=== PATIENT | female | born 1970 | race Caucasian/White ===

== ENCOUNTER 2018-12-17 00:23 | Emergency (ER) | payer BC, OTHER ==
[2018-12-17 01:08] VITALS: BP 163/93
--- NOTE | 2018-12-17 01:09 | EDM.PDOC ---
ED HPI GENERAL MEDICAL PROBLEM - General Chief Complaint: Abdominal Pain Stated Complaint: HORRIBLE SIDE PAIN [id number] Time Seen by Provider: 12/17/18 01:09 Source of Information: Reports: Patient, Family, RN, RN Notes Reviewed History Limitations: Reports: No Limitations - History of Present Illness INITIAL COMMENTS - FREE TEXT/NARRATIVE: Pt to ER with c/o RUQ pain that wraps around into the back. Admits to chills, nausea. Denies vomiting, fever, diarrhea. She states she last ate at 1800, a cheeseburger. She states the pain started about 2100 with a sharp, stabbing pain. She denies any urinary symptoms. She states she has known stones in the gallbladder. Rates pain 8-05/19. Onset: Today, Sudden Duration: Constant, Getting Worse Location: Reports: Abdomen, Back Quality: Reports: Sharp, Stabbing Severity: Severe - Related Data Allergies Allergy/AdvReac Type Severity Reaction Status Date / Time Penicillins Allergy Hives Verified 09/05/17 17:23 Home Meds: Home Meds Famotidine [Pepcid] 20 mg PO DAILY PRN 09/12/16 [History] Ibuprofen [Motrin Ib] 200 mg PO Q6HR PRN 09/12/16 [History] Past Medical History HEENT History: Reports: None Cardiovascular History: Reports: Other (See Below) Other Cardiovascular History: Hypertriglyceridemia Respiratory History: Reports: None Gastrointestinal History: Reports: GERD Genitourinary History: Reports: None Musculoskeletal History: Reports: Arthritis Neurological History: Reports: Migraines Psychiatric History: Reports: Depression Endocrine/Metabolic History: Reports: Obesity/BMI 30+, Other (See Below) Other Endocrine/Metabolic History: Hyperglycemia Hematologic History: Reports: None Immunologic History: Reports: None Oncologic (Cancer) History: Reports: None Dermatologic History: Reports: None - Infectious Disease History Infectious Disease History: Reports: Chicken Pox - Past Surgical History Female Surgical History: Reports: Breast Biopsy, Breast Reduction Musculoskeletal Surgical History: Reports: Other (See Below) Social & Family History - Family History Cardiac: Reports: CAD Respiratory: Reports: Asthma GI: Reports: GERD Neurological: Reports: Migraines Endocrine/Metabolic: Reports: Diabetes, Type I Oncologic: Reports: Breast, Skin, Other (See Below) Other Oncologic Family History: stomach cancer in brother - Caffeine Use Caffeine Use: Reports: Soda ED ROS GENERAL - Review of Systems Review Of Systems: ROS reveals no pertinent complaints other than HPI. ED EXAM, GI/ABD - Physical Exam Exam: See Below Exam Limited By: No Limitations General Appearance: Alert, WD/WN, Moderate Distress Eyes: Bilateral: Normal Appearance, EOMI Ears: Normal External Exam, Hearing Grossly Normal Nose: Normal Inspection Throat/Mouth: Normal Inspection, Normal Voice, No Airway Compromise Head: Atraumatic, Normocephalic Neck: Normal Inspection, Supple, Non-Tender, Full Range of Motion Respiratory/Chest: No Respiratory Distress, Lungs Clear, Normal Breath Sounds, No Accessory Muscle Use, Chest Non-Tender Cardiovascular: Normal Peripheral Pulses, Regular Rate, Rhythm, No Edema, No Gallop, No JVD, No Murmur, No Rub GI/Abdominal Exam: Normal Bowel Sounds, Soft, No Organomegaly, No Distention, Tender (RUQ) (Female) Exam: Deferred Rectal (Female) Exam: Deferred Back Exam: Normal Inspection, Full Range of Motion, CVA Tenderness (R) Extremities: Normal Inspection, Normal Range of Motion, Non-Tender, Normal Capillary Refill, No Pedal Edema Neurological: Alert, Oriented, CN II-XII Intact, Normal Cognition, Normal Gait, Normal Reflexes, No Motor/Sensory Deficits Psychiatric: Normal Affect, Normal Mood, Anxious Skin Exam: Warm, Dry, Intact, Normal Color, No Rash Lymphatic: No Adenopathy Course - Vital Signs Last Recorded V/S: Last Vital Signs Temp 99 F 12/17/18 00:54 Pulse 75 12/17/18 00:54 Resp 18 12/17/18 00:54 BP 163/93 H 12/17/18 00:54 Pulse Ox 99 12/17/18 00:54 - Orders/Labs/Meds Orders: Active Orders 24 hr Category Date Time Status Peripheral IV Care [RC] . DIRECTED Care 12/17/18 01:13 Active UA RFX DEMETRIS AND CULT IF INDIC [URIN] Stat Lab 12/17/18 02:26 Ordered Sodium Chloride 0.9% [Saline Flush] Med 12/17/18 01:13 Active 10 ml FLUSH ASDIRECTED PRN Peripheral IV Insertion Adult [OM.PC] Stat Oth 12/17/18 01:13 Ordered Medication Orders Sodium Chloride (Saline Flush) 10 ml FLUSH ASDIRECTED PRN PRN Reason: Keep Vein Open Last Admin: 12/17/18 01:52 Dose: 10 ml Labs: Laboratory Tests 12/17/18 12/17/18 Range/Units 01:30 01:30 WBC 8.8 (5.0-10.0) 10^3/uL RBC 4.68 (4.2-5.4) 10^6/uL Hgb 13.4 (12.0-16.0) g/dL Hct 39.1 (37.0-47.0) % MCV 83.5 (80-100) fL MCH 28.6 (27.0-34.0) pg MCHC 34.3 (33.0-35.0) g/dL Plt Count 218 (150-450) 10^3/uL Neut % (Auto) 59.8 (42.2-75.2) % Lymph % (Auto) 30.6 (20.5-50.1) % Travis % (Auto) 7.4 (2-8) % Eos % (Auto) 2.0 (1.0-3.0) % Baso % (Auto) 0.2 (0.0-1.0) % Sodium 136 (135-145) mmol/L Potassium 3.9 (3.6-5.0) mmol/L Chloride 105 (101-111) mmol/L Carbon Dioxide 20.0 L (21.0-31.0) mmol/L Anion Gap 14.9 BUN 15 (7-18) mg/dL Creatinine 1.0 (0.6-1.3) mg/dL Est Cr Clr Drug Dosing 57.53 mL/min Estimated GFR (MDRD) 59 BUN/Creatinine Ratio 15.00 Glucose 121 H (74-105) mg/dL Calcium 8.9 (8.4-10.2) mg/dl Total Bilirubin 0.5 (0.2-1.0) mg/dL AST 23 (10-42) IU/L ALT 25 (10-60) IU/L Alkaline Phosphatase 49 (42-121) IU/L Total Protein 7.1 (6.7-8.2) g/dl Albumin 3.5 (3.2-5.5) g/dl Globulin 3.6 Albumin/Globulin Ratio 0.97 Amylase 27 L (28-100) U/L Lipase 25 (22-51) U/L Meds: Medications Generic Name Dose Route Start Last Admin Trade Name Freq PRN Reason Stop Dose Admin Sodium Chloride 10 ml 12/17/18 01:13 12/17/18 01:52 Saline Flush FLUSH 10 ml ASDIRECTED PRN Administration Keep Vein Open Discontinued Medications Generic Name Dose Route Start Last Admin Trade Name Freq PRN Reason Stop Dose Admin Morphine Sulfate 2 mg 12/17/18 01:13 12/17/18 01:53 Morphine IVPUSH 12/17/18 01:14 2 mg ONETIME ONE Administration Ondansetron HCl 4 mg 12/17/18 01:13 12/17/18 01:50 Zofran IV 12/17/18 01:14 4 mg ONETIME ONE Administration Departure - Departure Time of Disposition: 02:15 Disposition: Home, Self-Care 01 Condition: Fair Clinical Impression: Cholelithiasis Qualifiers: Cholelithiasis location: gallbladder Cholecystitis presence: without cholecystitis Biliary obstruction: without biliary obstruction Qualified Code(s) : K80.20 - Calculus of gallbladder without cholecystitis without obstruction - Discharge Information *PRESCRIPTION DRUG MONITORING PROGRAM REVIEWED*: No *COPY OF PRESCRIPTION DRUG MONITORING REPORT IN PATIENT YURIY: No Instructions: Cholelithiasis, [id number] Forms: ED Department Discharge Additional Instructions: Follow up with Dr. May in the morning. Call [facility] at [phone] and ask for Same Day Surgery to make an appointment Nothing by mouth until you talk to them. - My Orders Last 24 Hours: My Active Orders 12/17/18 01:13 Peripheral IV Care [RC] . DIRECTED Sodium Chloride 0.9% [Saline Flush] 10 ml FLUSH ASDIRECTED PRN Peripheral IV Insertion Adult [OM.PC] Stat 12/17/18 02:26 UA RFX DEMETRIS AND CULT IF INDIC [URIN] Stat - Assessment/Plan Last 24 Hours: My Active Orders 12/17/18 01:13 Peripheral IV Care [RC] . DIRECTED Sodium Chloride 0.9% [Saline Flush] 10 ml FLUSH ASDIRECTED PRN Peripheral IV Insertion Adult [OM.PC] Stat 12/17/18 02:26 UA RFX DEMETRIS AND CULT IF INDIC [URIN] Stat
[2018-12-17] MEDS ORDERED: Ondansetron 4 MG/2 ML SDV IV ONE (01:13)
[2018-12-17] MEDS ORDERED: Morphine 2 MG/ML Syringe IVPUSH ONE (01:13)
[2018-12-17] MEDS ORDERED: Sodium Chloride 0.9% 10 ML Syringe FLUSH PRN (01:13)
[2018-12-17 01:57] LABS: ANION GAP 14.9
== END 2018-12-17 02:45 | disposition home or self-care (01) ==
LOC: DL.ED 00:23
DX: K80.20 Calculus of gallbladder without cholecystitis without obstruction (principal); Z88.0 Allergy status to penicillin
CPT/HCPCS: 36415; 80053; 81001; 82150; 83690; 85025; 96374; 96375; 99284; J2270; J2405

== ENCOUNTER 2018-12-18 12:51 | Outpatient (CLI) | payer BC ==
--- NOTE | 2018-12-19 04:48 | CN ---
SERVICE DATE: 12/18/2018 INTRODUCTION: This 48-year-old female presents to the Surgery [facility] for evaluation of right upper quadrant abdominal pain and known gallstones. She had been in the emergency room 2 nights ago for this and she was treated there, discharged, and advised to make an appointment for the Surgery Clinic. Today, she is only mildly symptomatic, but by physical examination, has a positive Drake sign and is tender to palpation in the right upper quadrant. She has sleep apnea and does use a CPAP machine. PAST MEDICAL HISTORY: ALLERGIES: The patient has allergies to penicillin. CURRENT MEDICATIONS: Pepcid. She takes phentermine and Topamax. PRIOR SURGICAL HISTORY: Includes ankle reconstruction about 3 years ago. She has had a knee scope surgery as a child and has had bilateral breast reduction. REVIEW OF SYSTEMS: Negative. 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 She is . She does not smoke. PHYSICAL EXAMINATION: HEENT: Normal. Chest: Lungs are clear bilaterally. Heart: Normal sinus rhythm. Abdomen: Obese. She has no evidence of hernias. No prior scars. She is tender to palpation in the right upper quadrant. Extremities: Have no edema. Neurologic: Intact. IMAGING: Prior ultrasound that had been done does show cholelithiasis with multiple stones within the gallbladder. ASSESSMENT: Chronic cholecystitis, cholelithiasis. PLAN: I discussed the risks, benefits, and expected outcomes of a laparoscopic cholecystectomy with this patient. We will proceed with this at [facility] on 12/19/2018. [facility] /[id number]
== END 2018-12-18 13:40 | disposition home or self-care (01) ==
LOC: DL.GSCL 12:51
DX: K80.10 Calculus of gallbladder with chronic cholecystitis without obstruction (principal)
CPT/HCPCS: 99203